=== PATIENT | male | born 2000 | race Hispanic/Latino ===

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

== ENCOUNTER 2022-08-11 04:28 | Emergency (ER) | payer OTHER ==
--- OUTSIDE RECORDS SUMMARY | 2022-08-11 04:32 | XMS REPORT | Continuity of Care Document ---
:2000 Author Organization [facility] t Address [address] [place] [address] [address] [place] [address] Care Team Providers Name Role Phone Su Hood Primary Care Physician [phone] Kimi Jeronimo RN Attending Clinician Unavailable BRYANT RIVERS Attending Clinician Unavailable Bryant Luque Attending Clinician DALILA CONTRERAS Attending Clinician Unavailable Dalila Contreras MD Attending Clinician PAM PIRES Attending Clinician Unavailable Pam Pires MD Attending Clinician DALILA CONTRERAS Admitting Clinician Unavailable BRYANT RIVERS Admitting Clinician Unavailable Payers Payer Name Policy Type Policy Number Effective Date Expiration Date S ource Problems Condition Condition Condition Status Onset Resolution Last Treating Co mments Source Name Details Category Date Date Treatment Clinician Date H. pylori H. pylori Disease Active 2012-03 Uni vers infection infection 1- ity of 00:00: [address] Allergies, Adverse Reactions, Alerts Allergy Allergy Status Severity Reaction(s) Onset Inactive Treating Comm ents Source Name Type Date Date Clinician NO KNOWN Drug Active Univers ALLERGIE Class ity of S [facility] Social History Social Habit Start Date Stop Date Quantity Comments Source Exposure to 2022-06-19 2022-06-29 Not sure University of SARS-CoV-2 00:00:00 18:32:00 [place] [facility] (event) Branch Alcohol intake 2022-06-29 2022-06-29 Current University of 00:00:00 00:00:00 non-drinker of [facility] alcohol (finding) Branch Tobacco use and 2012-12-01 2012-12-01 Smokeless tobacco Un iversity of exposure 00:00:00 00:00:00 non-user [facility] Tobacco Comment 2012-12-01 2012-12-01 father smokes Univer sity of 00:00:00 00:00:00 outside [facility] Sex Assigned At [birth year] Universit y of 00:00:00 00:00:00 [facility] Smoking Status Start Date Stop Date Source Never smoked tobacco [facility] Medications Ordered Filled Start Stop Current Ordering Indication Dosage Frequency Signature Comments Components Source Medication Medication Date Date Medication? Clinician (SIG) Name Name acetaminoph 2022- No 1000mg 1,000 mg, Univers en 06-29 Oral, ity of (TYLENOL) 23:45: 23:41 [place]CE[place] :[place] dose, [place] Medical 1,000 mg Tue06/29/22 Bran h at 1845, Routine ibuprofen 2022- No 600mg 600 mg, Uni vers (IBU) 06-29 Oral, ity of tablet 600 23:45: 23:42 ONCE, 1 [place] mg 00 :00 dose, On Medical Tue06/29/22 Branch at 1845, MECHELLE ibuprofen Yes [id number] 800mg Take 1 U nivers 800 mg 4-04 tablet by ity of tablet 00:00: mouth [place] 00 every 8 Medical (eight) Branch hours as needed for Temp > 38.5 C or Pain (scale 4-6). ondansetron Yes [id number] 4mg Take 1 Univers 4 mg 4-04 tablet by ity of disintegrat 00:00: mouth [place] ing tablet 00 every 8 Medica l (eight) Branch hours as needed for Nausea and Vomiting (N/V). ibuprofen Yes [id number] 800mg Take 1 U nivers 800 mg 4-04 tablet by ity of tablet 00:00: mouth [place] 00 every 8 Medical (eight) Branch hours as needed for Temp > 38.5 C or Pain (scale 4-6). ondansetron Yes [id number] 4mg Take 1 Univers 4 mg -04 tablet by ity of disintegrat 00:00: mouth [place] ing tablet 00 every 8 Medica l (eight) Branch hours as needed for Nausea and Vomiting (N/V). FENTanyl PF 2022- No 100ug 100 mcg, Univers (SUBLIMAZE 05-01 Slow IV ity o f (PF)) 06:00: 05:10 Push, [place] injection 00 :00 ONCE, 1 Medical 100 mcg dose, On Branch 05/01/22 at 0000, MECHELLE ketorolac 2022- No 30mg 30 mg, Unive rs (TORADOL) 05-01 Slow IV ity of injection 05:45: 05:10 Push, [place] 30 mg 00 :00 ONCE, 1 Medical dose, On Branch 04/30/22 at 2345, Routine azithromyci 2022- No 1000mg 1,000 mg, Univers n 05-01 Oral, ity of (ZITHROMAX) 05:15: 05:09 [place]CE, 1 [place] tablet 00 :[place] dose, On Medical 1,000 mg 04/30/22 Branc h at 2315, MECHELLE
Re ason for Anti-Infec tive: Documented Infection< br>Documen mikey Infection Site: Urine
D uration of Therapy: Other (see Comments) ondansetron 2022- No 4mg 4 mg, Slow Univers (ZOFRAN 05-01 IV Push, ity of (PF)) 04:30: 03:39 ONCE, 1 [place] injection 4 00 :00 dose, On Medi petrona mg 04/30/22 Branch at 2230, MECHELLE morpHINE (4 2022- No 4mg 4 mg, Slow Univers mg/mL) 05-01 IV Push, ity of injection 4 04:30: 03:39 ONCE, 1 [place] mg 00 :[place] dose, On Medical 04/30/22 Branch at 2230, STAT cefTRIAXone 2022- No 1000mg 1,000 mg, Univers (ROCEPHIN) 05-01 IV ity of 1,000 mg in 03:30: 04:53 Piggyback, [place] NaCl 0.9% 00 :00 ONCE, 1 Medical (NS) 50 mL dose, On Branc h MINI-BAG Tue04/30/22 at 2130, Administer over 30 Minutes, 50 mL
R jaswinder for Anti-Infec tive: Documented Infection< br>Documen mikey Infection Site: Pelvic<br& gt;Duratio n of Therapy: 7 days doxycycline 0 Yes [id number] 100mg Take 1 Univers hyclate 100 04-30 capsule by it y of mg capsule 00:00: mouth 2 [place] 00 (two) Medical times Branch daily. doxycycline 2022- No [id number] 100mg Take 1 Univers hyclate 100 04-30- capsule by i ty of mg capsule 00:00: 00:00 mouth 2 [place] 00 :00 (two) Medical times Branch daily. acetaminoph 2022- No [id number] 1{tbl} Take 1 U nivers en-codeine 04-30 tablet by ity of 300-30 mg 00:00: 05:59 mouth [place] tablet 00 :00 every 4 Medical (four) Branch hours as needed for Pain (scale 1-3) for up to 7 days. Indication s: acute pain ibuprofen 0 Yes [id number] 600mg Take 1 Univers 600 mg 2-01 tablet by ity of tablet 00:00: mouth [place] 00 every 6 Medical (six) Branch hours as needed for Pain (scale 4-6). ibuprofen 0 Yes [id number] 600mg Take 1 Univers 600 mg 2-01 tablet by ity of tablet 00:00: mouth [place] 00 every 6 Medical (six) Branch hours as needed for Pain (scale 4-6). ibuprofen 0 2022- No [id number] 600mg Take 1 Univers 600 mg 2-03 31-04 tablet by ity of tablet 00:00: 00:00 mouth [place] 00 :00 every 6 Medical (six) Branch hours as needed for Pain (scale 4-6). &lt 2021-0 No 8-11 00:00: 00 TAKE ONE 2021-0 No 600 TABLET FOUR 8-11 TIMES DAILY 00:00: 00 &lt 2022-0 No 800 8-11 00:00: 00 TAKE 1 2021-0 No 800 TABLET BY 8-11 MOUTH THREE 00:00: TIMES DAILY 00 Dose 2021-0 No Unknown 2-28 00:00: 00 Dose 2020- No Unknown 2-08 00:00: 00 ibuprofen 2020-1 No 1mg 800 mg 0-12 tablet 00:00: 00 amoxicillin 2020-0 No 1mg 875 mg 6-03 tablet 00:00: 00 pyrantel 0 No 15mg/mL pamoate 50 4-28 mg/mL oral 00:00: suspension 00 Miralax 17 0 No 1gram gram oral 4-28 powder 00:00: packet 00 amoxicillin No 1mg 500 mg 9-21 capsule 00:00: 00 amoxicillin No 1mg 500 mg 8-22 capsule 00:00: 00 permethrin No 1% 5 % topical 5-26 cream 00:00: 00 griseofulvi No 15mg/5 n microsize 5-24 mL 125 mg/5 mL 00:00: oral 00 suspension sulfamethox No 15mg/5 azole 200 5-24 mL mg-trimetho 00:00: prim 40 00 mg/5 mL oral suspension Adderall XR No 1mg 20 mg 5-02 capsule,ext 00:00: ended 00 release amphetamine Yes 10mg Take 1 Cap Univers -dextroamph 2-28 by mouth ity of etamine XR 00:00: every [place] (ADDERALL 00 morning. Medica l XR) 10 mg Branch 24 hr capsule amphetamine Yes 10mg Take 1 Cap Univers -dextroamph 2-28 by mouth ity of etamine XR 00:00: every [place] (ADDERALL 00 morning. Medica l XR) 10 mg Branch 24 hr capsule amphetamine 2022- No 10mg Take 1 Cap Univers -dextroamph 2-28 04-04 by mouth ity of etamine XR 00:00: 00:00 every [place] (ADDERALL 00 :00 morning. Medica l XR) 10 mg Branch 24 hr capsule Cholecalcif 2012-03 Yes [id number] 1/2 tab po Univers ovidio, 0-30 q day x 6 ity of Vitamin D3, 00:00: Marleni mcmillan s (VITAMIN 00 then 1 tab Medic al D3) 2,000 po q day x Bran ch unit Tab 6 weeks Cholecalcif 2012-03 Yes [id number] 1/2 tab po Univers ovidio, 0-30 q day x 6 ity of Vitamin D3, 00:00: Marleni mcmillan s (VITAMIN 00 then 1 tab Medic al D3) 2,000 po q day x Bran ch unit Tab 6 weeks Cholecalcif 2012-03- No [id number] 1/2 tab po Univers ovidio, 0-30 04-04 q day x 6 ity of Vitamin D3, 00:00: 00:00 Quan mcmillan as (VITAMIN 00 :00 then 1 tab Medic al D3) 2,000 po q day x Bran ch unit Tab 6 weeks amoxicillin 2012-03 Yes [id number] One po bid Univers (AMOXIL) 0-29 x 14 days ity of 875 mg 00:00: [place] tablet 00 Medical Branch lansoprazol 2012-03 Yes [id number] One po bid Univers e 0-29 x 14 days ity of (PREVACID) 00:00: [place] 30 mg 00 Medical capsule Branch clarithromy 2012-03 Yes [id number] 1.5 tablet Univers nic 0-29 (375 mg) ity of (BIAXIN) 00:00: po bid x [place] 250 mg 00 14 days Medical tablet Branch amoxicillin 2012-03 Yes [id number] One po bid Univers (AMOXIL) 0-29 x 14 days ity of 875 mg 00:00: [place] tablet 00 Medical Branch lansoprazol 2012-03 Yes [id number] One po bid Univers e 0-29 x 14 days ity of (PREVACID) 00:00: [place] 30 mg 00 Medical capsule Branch clarithromy 2012-03 Yes [id number] 1.5 tablet Univers nic 0-29 (375 mg) ity of (BIAXIN) 00:00: po bid x [place] 250 mg 00 14 days Medical tablet Branch amoxicillin 2012-03- No [id number] One po bid Univers (AMOXIL) 0-29 04-04 x 14 days ity o f 875 mg 00:00: 00:00 [place] tablet 00 :00 Medical Branch lansoprazol 2012-03- No [id number] One po bid Univers e 0-29 04-04 x 14 days ity of (PREVACID) 00:00: 00:00 [place] 30 mg 00 :00 Medical [facility] Branch clarithromy 2012-033- No [id number] 1.5 tablet Univers nic 06-29 (375 mg) ity of (BIAXIN) 00:00: 00:00 po bid x [place] 250 mg 00 :00 14 days Medical tablet Branch Melatonin 3 2012-03 Yes [id number] Take by Univers mg Lozg 0-25 mouth. ity of 00:00: [place] 00 Medical Branch Melatonin 3 2012-03 Yes [id number] Take by Univers mg Lozg 0-25 mouth. ity of 00:00: [place] 00 Medical Branch Melatonin 3 2012-033- No [id number] Take by Univers mg Lozg 0-25 04-04 mouth. ity of 00:00: 00:00 [place] 00 :00 [facility] Immunizations Ordered Filled Immunization Date Status Comments [facility] e Immunization Name Name SARS-COV-2 COVID-19 2020-11-25 Completed Unive rsity of PFIZER VACCINE 00:00:00 [facility] SARS-COV-2 COVID-19 2020-11-25 Completed Unive rsity of PFIZER VACCINE 00:00:00 [facility] SARS-COV-2 COVID-19 2020-11-25 Completed Unive rsity of PFIZER VACCINE 00:00:00 [facility] SARS-COV-2 COVID-19 2020-11-25 Completed Unive rsity of PFIZER VACCINE 00:00:00 [facility] Influenza Virus 2013-02-09 Completed Universit y of Vaccine (3+ yrs) 00:00:00 [facility] Influenza Virus 2013-02-09 Completed Universit y of Vaccine (3+ yrs) 00:00:00 [facility] Influenza Virus 2013-02-09 Completed Universit y of Vaccine (3+ yrs) 00:00:00 [facility] Influenza Virus 2013-02-09 Completed Universit y of Vaccine (3+ yrs) 00:00:00 [facility] Influenza Virus 2012-03-03 Completed Universit y of Vaccine 00:00:00 [facility] Influenza Virus 2012-03-03 Completed Universit y of Vaccine 00:00:00 [facility] Influenza Virus 2012-03-03 Completed Universit y of Vaccine 00:00:00 [facility] Influenza Virus 2012-03-03 Completed Universit y of Vaccine 00:00:00 [facility] Influenza Virus 2011-04-16 Completed Universit y of Vaccine 00:00:00 [facility] Influenza Virus 2011-04-16 Completed Universit y of Vaccine 00:00:00 [facility] Influenza Virus 2011-04-16 Completed Universit y of Vaccine 00:00:00 [facility] Influenza Virus 2011-04-16 Completed Universit y of Vaccine 00:00:00 [facility] Influenza Virus 2010-02-24 Completed Universit y of Vaccine 00:00:00 [facility] Influenza Virus 2010-02-24 Completed Universit y of Vaccine 00:00:00 [facility] Influenza Virus 2010-02-24 Completed Universit y of Vaccine 00:00:00 [facility] Influenza Virus 2010-02-24 Completed Universit y of Vaccine 00:00:00 [facility] Influenza Virus 2010-01-13 Completed Universit y of Vaccine 00:00:00 [facility] Influenza Virus 2010-01-13 Completed Universit y of Vaccine 00:00:00 [facility] Influenza Virus 2010-01-13 Completed Universit y of Vaccine 00:00:00 [facility] Influenza Virus 2010-01-13 Completed Universit y of Vaccine 00:00:00 [facility] Varicella 2009-07-15 Completed University of (varivax)(chicken 00:00:00 [place] M edical pox) Branch Varicella 2009-07-15 Completed University of (varivax)(chicken 00:00:00 [place] M [facility]ical pox) Branch Varicella 2009-07-15 Completed University of (varivax)(chicken 00:00:00 [place] M edical pox) Branch Varicella 2009-07-15 Completed University of (varivax)(chicken 00:00:00 [place] M edical pox) Branch Pneumococcal 7 2007-01-19 Completed University of Conjugate, PCV7 00:00:00 [place] Med ical (Prevnar7) Branch Pneumococcal 7 2007-01-19 Completed University of Conjugate, PCV7 00:00:00 [place] [facility] ical (Prevnar7) Branch Pneumococcal 7 2007-01-19 Completed University of Conjugate, PCV7 00:00:00 [place] [facility] ical (Prevnar7) Branch Pneumococcal 7 2007-01-19 Completed University of Conjugate, PCV7 00:00:00 [place] [facility] ical (Prevnar7) Branch HEPATITIS A 2007-01-12 Completed University of 00:00:00 [facility] HEPATITIS A 2007-01-12 Completed University of 00:00:00 [facility] HEPATITIS A 2007-01-12 Completed University of 00:00:00 [facility] HEPATITIS A 2007-01-12 Completed University of 00:00:00 [facility] DTAP 2006-12-20 Completed University of 00:00:00 [facility] Polio (IPV/OPV) 2006-12-20 Completed Universit y of 00:00:00 [facility] DTAP 2006-12-20 Completed University of 00:00:00 [facility] Polio (IPV/OPV) 2006-12-20 Completed Universit y of 00:00:00 [facility] DTAP 2006-12-20 Completed University of 00:00:00 [facility] Polio (IPV/OPV) 2006-12-20 Completed Universit y of 00:00:00 [facility] DTAP 2006-12-20 Completed University of 00:00:00 [facility] Polio (IPV/OPV) 2006-12-20 Completed Universit y of 00:00:00 [facility] HIB 4 Dose Schedule 2006-05-19 Completed Unive rsity of 00:00:00 [facility] HIB 4 Dose Schedule 2006-05-19 Completed Unive rsity of 00:00:00 [facility] HIB 4 Dose Schedule 2006-05-19 Completed Unive rsity of 00:00:00 [facility] HIB 4 Dose Schedule 2006-05-19 Completed Unive rsity of 00:00:00 [facility] Pneumococcal 7 2006-01-12 Completed University of Conjugate, PCV7 00:00:00 [place] [facility] ical (Prevnar7) Branch Pneumococcal 7 2006-01-12 Completed University of Conjugate, PCV7 00:00:00 [place] [facility] ical (Prevnar7) Branch Pneumococcal 7 2006-01-12 Completed University of Conjugate, PCV7 00:00:00 [place] [facility] ical (Prevnar7) Branch Pneumococcal 7 2006-01-12 Completed University of Conjugate, PCV7 00:00:00 [place] [facility] ical (Prevnar7) Branch Pneumococcal 7 2005-12-13 Completed University of Conjugate, PCV7 00:00:00 [place] Med ical (Prevnar7) Branch Pneumococcal 7 2005-12-13 Completed University of Conjugate, PCV7 00:00:00 [place] [facility] ical (Prevnar7) Branch Pneumococcal 7 2005-12-13 Completed University of Conjugate, PCV7 00:00:00 [place] [facility] ical (Prevnar7) Branch Pneumococcal 7 2005-12-13 Completed University of Conjugate, PCV7 00:00:00 [facility] ical (Prevnar7) Branch HEPATITIS A 2005-06-16 Completed University of 00:00:00 [facility] MMR 2005-06-16 Completed University of 00:00:00 [facility] Varicella 2005-06-16 Completed University of (varivax)(chicken 00:00:00 [facility] [place] ed[place] pox) Branch HEPATITIS A 2005-06-16 Completed University of 00:00:00 [facility] MMR 2005-06-16 Completed University of 00:00:00 [facility] Varicella 2005-06-16 Completed University of (varivax)(chicken 00:00:00 [place] [facility] [place]ical pox) Branch HEPATITIS A 2005-06-16 Completed University of 00:00:00 [facility] MMR 2005-06-16 Completed University of 00:00:00 [facility] Varicella 2005-06-16 Completed University of (varivax)(chicken 00:00:00 [facility] [place] ed[facility] pox) Branch HEPATITIS A 2005-06-16 Completed University of 00:00:00 [facility] MMR 2005-06-16 Completed University of 00:00:00 [facility] Varicella 2005-06-16 Completed University of (varivax)(chicken 00:00:00 [place] M edical pox) Branch DTAP 2005-01-13 Completed University of 00:00:00 [facility] DTAP 2005-01-13 Completed University of 00:00:00 [facility] DTAP 2005-01-13 Completed University of 00:00:00 [facility] DTAP 2005-01-13 Completed University of 00:00:00 [facility] MMR 2003-12-12 Completed University of 00:00:00 [facility] MMR 2003-12-12 Completed University of 00:00:00 [facility] MMR 2003-12-12 Completed University of 00:00:00 [facility] MMR 2003-12-12 Completed University of 00:00:00 [facility] DTAP 2003-07-26 Completed University of 00:00:00 [facility] Polio (IPV/OPV) 2003-07-26 Completed Universit y of 00:00:00 [facility] DTAP 2003-07-26 Completed University of 00:00:00 [facility] Polio (IPV/OPV) 2003-07-26 Completed Universit y of 00:00:00 [facility] DTAP 2003-07-26 Completed University of 00:00:00 [facility] Polio (IPV/OPV) 2003-07-26 Completed Universit y of 00:00:00 [facility] DTAP 2003-07-26 Completed University of 00:00:00 [facility] Polio (IPV/OPV) 2003-07-26 Completed Universit y of 00:00:00 [facility] DTAP 2003-05-18 Completed University of 00:00:00 [facility] HIB 4 Dose Schedule 2003-05-18 Completed Unive rsity of 00:00:00 [facility] Hep B, Adol or Pedi 2003-05-18 Completed Unive rsity of Dosage 00:00:00 [facility] Polio (IPV/OPV) 2003-05-18 Completed Universit y of 00:00:00 [facility] DTAP 2003-05-18 Completed University of 00:00:00 [facility] HIB 4 Dose Schedule 2003-05-18 Completed Unive rsity of 00:00:00 [facility] Hep B, Adol or Pedi 2003-05-18 Completed Unive rsity of Dosage 00:00:00 [facility] Polio (IPV/OPV) 2003-05-18 Completed Universit y of 00:00:00 [facility] DTAP 2003-05-18 Completed University of 00:00:00 [facility] HIB 4 Dose Schedule 2003-05-18 Completed Unive rsity of 00:00:00 [facility] Branch Hep B, Adol or Pedi 2003-05-18 Completed Unive rsity of Dosage 00:00:00 [facility] Polio (IPV/OPV) 2003-05-18 Completed Universit y of 00:00:00 [facility] DTAP 2003-05-18 Completed University of 00:00:00 [facility] HIB 4 Dose Schedule 2003-05-18 Completed Unive rsity of 00:00:00 [facility] Branch Hep B, Adol or Pedi 2003-05-18 Completed Unive rsity of Dosage 00:00:00 [facility] Polio (IPV/OPV) 2003-05-18 Completed Universit y of 00:00:00 [facility] HIB 4 Dose Schedule 2003-01-24 Completed Unive rsity of 00:00:00 [facility] Hep B, Adol or Pedi 2003-01-24 Completed Unive rsity of Dosage 00:00:00 [facility] Pneumococcal 7 2003-01-24 Completed University of Conjugate, PCV7 00:00:00 [place] [facility] ical (Prevnar7) Branch Polio (IPV/OPV) 2003-01-24 Completed Universit y of 00:00:00 [facility] DTAP 2003-01-24 Completed University of 00:00:00 [facility] HIB 4 Dose Schedule 2003-01-24 Completed Unive rsity of 00:00:00 [facility] Hep B, Adol or Pedi 2003-01-24 Completed Unive rsity of Dosage 00:00:00 [facility] Pneumococcal 7 2003-01-24 Completed University of Conjugate, PCV7 00:00:00 [place] Med ical (Prevnar7) [place] Polio (IPV/OPV) 2003-01-24 Completed Universit y of 00:00:00 [facility] DTAP 2003-01-24 Completed University of 00:00:00 [facility] HIB 4 Dose Schedule 2003-01-24 Completed Unive rsity of 00:00:00 [facility] Hep B, Adol or Pedi 2003-01-24 Completed Unive rsity of Dosage 00:00:00 [facility] Pneumococcal 7 2003-01-24 Completed University of Conjugate, PCV7 00:00:00 [place] [facility] ical (Prevnar7) Branch Polio (IPV/OPV) 2003-01-24 Completed Universit y of 00:00:00 [facility] DTAP 2003-01-24 Completed University of 00:00:00 [facility] HIB 4 Dose Schedule 2003-01-24 Completed Unive rsity of 00:00:00 [facility] Hep B, Adol or Pedi 2003-01-24 Completed Unive rsity of Dosage 00:00:00 [facility] Pneumococcal 7 2003-01-24 Completed University of Conjugate, PCV7 00:00:00 [place] [facility] ical (Prevnar7) Branch Polio (IPV/OPV) 2003-01-24 Completed Universit y of 00:00:00 [facility] Branch DTAP 2003-01-24 Completed University of 00:00:00 [place] [facility] Hep B, Adol or Pedi 2002 Completed Unive rsity of Dosage 00:00:00 [place] [facility] Hep B, Adol or Pedi 2002 Completed Unive rsity of Dosage 00:00:00 [place] [facility] Hep B, Adol or Pedi 2002 Completed Unive rsity of Dosage 00:00:00 [place] [facility] Hep B, Adol or Pedi 2002 Completed Unive rsity of Dosage 00:00:00 [facility] Vital Signs Vital Name Observation Time Observation Value Comments Source Systolic blood 2022-06-30 00:53:04 117 mm[Hg] Univer sity of pressure [facility] Diastolic blood 2022-06-30 00:53:04 66 mm[Hg] Unive rsity of pressure [facility] Heart rate 2022-06-30 00:53:04 88 /min [facility] Body temperature 2022-06-30 00:53:04 36.89 [facility] Respiratory rate 2022-06-30 00:53:04 16 [facility] in 2022-06-30 00:53:04 97 /min [place] [facility] Arterial blood by [facility] Pulse oximetry [place] Body height 2022-06-29 23:34:00 162.6 cm [facility] Body weight 2022-06-29 23:34:00 63.504 kg [facility] BMI 2022-06-29 23:34:00 24.03 kg/m2 [facility] Systolic blood 2022-05-01 05:10:00 144 mm[Hg] Univer sity of pressure [facility] Diastolic blood 2022-05-01 05:10:00 92 mm[Hg] Unive rsity of pressure [facility] Heart rate 2022-05-01 05:10:00 86 /min [facility] Respiratory rate 2022-05-01 05:10:00 16 /[facility] O[facility] in 2022-05-01 05:10:00 100 /min University of Arterial blood by [place] Medi [place] Pulse oximetry Branch Body temperature 2022-05-01 03:18:00 36.72 [place]le Univ ersity of [facility] Body height 2022-05-01 03:18:00 162.6 cm Universi ty of [facility] Body weight 2022-05-01 03:18:00 65.772 kg Universi ty of [place] [facility] [facility] BMI 2022-05-01 03:18:00 24.89 kg/m2 [facility] Systolic blood 2022-04-29 03:00:00 126 mm[Hg] Univer sity of pressure [facility] Diastolic blood 2022-04-29 03:00:00 79 mm[Hg] Unive rsity of pressure [facility] Heart rate 2022-04-29 03:00:00 88 /min [facility] Body temperature 2022-04-29 03:00:00 36.78 [facility] Respiratory rate 2022-04-29 03:00:00 18 /min [facility] Oxygen saturation in 2022-04-29 03:00:00 100 /min [facility] Arterial blood by [facility] Pulse oximetry Branch Body height 2022-04-29 00:57:00 162.6 cm [facility] Body weight 2022-04-29 00:57:00 65.772 kg [facility] BMI 2022-04-29 00:57:00 24.89 kg/m2 [facility] BP Systolic 2021-11-05 15:35:00 127 mm[Hg] BP Diastolic 2021-11-05 15:35:00 85 mm[Hg] Weight Measured 2021-11-05 15:35:00 142.20 pounds Height Measured 2021-11-05 15:35:00 64.00 inches Body Temperature 2021-11-05 15:35:00 98.10 degrees Heart Rate 2021-11-05 15:35:00 102.00 /min Respiratory Rate 2021-11-05 15:35:00 24.00 /min BP Systolic 2021-03-04 08:25:00 113 mm[Hg] BP Diastolic 2021-03-04 08:25:00 72 mm[Hg] Weight Measured 2021-03-04 08:25:00 140.40 pounds Height Measured 2021-03-04 08:25:00 64.00 inches Body Temperature 2021-03-04 08:25:00 97.40 degrees Heart Rate 2021-03-04 08:25:00 70.00 /min Respiratory Rate 2021-03-04 08:25:00 BP Systolic 2021-01-19 08:53:00 106 mm[Hg] BP Diastolic 2021-01-19 08:53:00 58 mm[Hg] Weight Measured 2021-01-19 08:53:00 142.80 pounds Height Measured 2021-01-19 08:53:00 64.00 inches Body Temperature 2021-01-19 08:53:00 97.90 degrees Heart Rate 2021-01-19 08:53:00 75.00 /min Respiratory Rate 2021-01-19 08:53:00 BP Systolic 2021-01-06 08:25:00 109 mm[Hg] BP Diastolic 2021-01-06 08:25:00 72 mm[Hg] Weight Measured 2021-01-06 08:25:00 144.00 pounds Height Measured 2021-01-06 08:25:00 64.00 inches Body Temperature 2021-01-06 08:25:00 98.10 degrees Heart Rate 2021-01-06 08:25:00 64.00 /min Respiratory Rate 2021-01-06 08:25:00 BP Systolic 2020-07-23 11:32:00 115 mm[Hg] BP Diastolic 2020-07-23 11:32:00 73 mm[Hg] Weight Measured 2020-07-23 11:32:00 142.20 pounds Height Measured 2020-07-23 11:32:00 63.00 inches Body Temperature 2020-07-23 11:32:00 98.20 degrees Heart Rate 2020-07-23 11:32:00 66.00 /min Respiratory Rate 2020-07-23 11:32:00 16.00 /min BP Systolic 2015-12-17 15:40:00 107 mm[Hg] BP Diastolic 2015-12-17 15:40:00 71 mm[Hg] Weight Measured 2015-12-17 15:40:00 100.60 pounds Height Measured 2015-12-17 15:40:00 56.00 inches Body Temperature 2015-12-17 15:40:00 98.20 degrees Heart Rate 2015-12-17 15:40:00 89.00 /min Respiratory Rate 2015-12-17 15:40:00 18.00 /min BP Systolic 2015-11-17 10:02:00 109 mm[Hg] BP Diastolic 2015-11-17 10:02:00 73 mm[Hg] Weight Measured 2015-11-17 10:02:00 101.00 pounds Height Measured 2015-11-17 10:02:00 56.00 inches Body Temperature 2015-11-17 10:02:00 98.70 degrees Heart Rate 2015-11-17 10:02:00 108.00 /min Respiratory Rate 2015-11-17 10:02:00 18.00 /min Height Measured 2015-09-09 13:33:00 54.53 inches Body Temperature 2015-09-09 13:33:00 98.10 degrees Heart Rate 2015-09-09 13:33:00 91.00 /min Respiratory Rate 2015-09-09 13:33:00 BP Systolic 2015-09-09 13:33:00 103 mm[Hg] BP Diastolic 2015-09-09 13:33:00 69 mm[Hg] Weight Measured 2015-09-09 13:33:00 85.40 pounds BP Systolic 2015-08-22 16:16:00 121 mm[Hg] BP Diastolic 2015-08-22 16:16:00 75 mm[Hg] Weight Measured 2015-08-22 16:16:00 83.80 pounds Height Measured 2015-08-22 16:16:00 55.51 inches Body Temperature 2015-08-22 16:16:00 98.00 degrees Heart Rate 2015-08-22 16:16:00 120.00 /min Respiratory Rate 2015-08-22 16:16:00 16.00 /min BP Systolic 2015-08-21 08:46:00 103 mm[Hg] BP Diastolic 2015-08-21 08:46:00 71 mm[Hg] Weight Measured 2015-08-21 08:46:00 83.20 pounds Height Measured 2015-08-21 08:46:00 56.00 inches Body Temperature 2015-08-21 08:46:00 98.10 degrees Heart Rate 2015-08-21 08:46:00 102.00 /min Respiratory Rate 2015-08-21 08:46:00 16.00 /min Procedures Procedure Date / Time Performed Performing Clinician [facility] e RAPID STREP SCREEN FOR 2022-06-29 23:44:00 Bryant Rivers [facility] GROUP A Medical Branch RAPID INFLUENZA A/B 2022-06-29 23:44:[address] [facility] CONSENT/REFUSAL FOR 2022-06-29 23:28:51 Doctor Unassigned, No [facility] [place] [facility] Name Medical Branch TREATMENT US SCROTUM AND 2022-05-01 04:54:42 Dalila Contreras [facility] CONSENT/REFUSAL FOR 2022-05-01 03:15:19 [facility], [facility] TREATMENT US TESTICULAR TORSION 2022-04-29 02:22:24 Bryant Rivers [facility] URINALYSIS 2022-04-29 01:10:00 Bryant Rivers [facility] NOTICE OF PRIVACY 2022-04-29 00:45:07 Doctor Unassigned, No [facility] PRACTICES [facility] CONSENT/REFUSAL FOR 2022-04-29 00:43:35 Doctor Unassigned, No [facility] [place] DIAGNOSIS AND Name Medical Branch TREATMENT Plan of Care Planned Activity Planned Date Details Comments Source Goal Plan of Care Note [code = 58095-8] Goal Plan of Care Note [code = 82824-5] Goal Plan of Care Note [code = 54107-8] Goal Plan of Care Note [code = 47738-1] Goal Plan of Care Note [code = 81693-7] Goal Plan of Care Note [code = 91475-1] Goal Plan of Care Note [code = 36608-2] Goal Plan of Care Note [code = 82874-4] Goal Plan of Care Note [code = 31359-9] Goal Plan of Care Note [code = 42615-7] Goal Plan of Care Note [code = 26470-3] Goal Plan of Care Note [code = 55326-4] Goal Plan of Care Note [code = 83290-5] Goal Plan of Care Note [code = 02659-9] Goal Plan of Care Note [code = 50010-5] Goal Plan of Care Note [code = 18344-5] Goal Plan of Care Note [code = 77772-4] Goal Plan of Care Note [code = 37049-1] Goal Plan of Care Note [code = 13373-5] Encounters Start End Encounter Admission Attending Care Care Encounter Source Date/Time Date/Time Type Type Clinicians Facility Department ID 2022-06-30 2022-06-30 SUSHILA Keita [id number] Univers 00:00:00 00:00:00 (Out) Kimi ROSALINA [id number] [facility] [id number] [facility] [id number] [address] 2022-06-29 2022-06-29 Emergency [facility] [id number] Univers 18:38:00 19:58:00 BRYANT garcia [facility] 2022-06-29 2022-06-29 Emergency [facility] [id number] Univers 18:38:00 19:58:00 Bryant JUNG [id number] mena martínez [facility] [id number] [facility] [id number] [address] 2022-04-30 2022-04-30 Emergency [facility]RT [id number] Univers 21:29:00 23:36:00 DALILA [facility] 2022-04-30 2022-04-30 Emergency [facility] [id number] Univers 21:29:00 23:36:00 Dalila [facility]UNG [id number] [facility] [id number] [facility] [id number] [address] 2022-04-28 2022-04-28 Emergency X PRANAY [facility] ERT [id number] Univers 18:59:00 21:12:00 PAM garcia [facility] 2022-04-28 2022-04-28 Emergency Bryant Rivers [facility] [id number] [facility] 18:59:00 21:12:00 Pam Pires [facility] [id number] [facility] [id number] [facility] [id number] [facility] 084 Branch 2021-11-05 2021-11-05 Outpatient [id number] 00:00:00 00:00:00 Visit [id number] Results Test Description Test Time Test Comments Results Result Comments Source DRUG SCREEN, SERUM, NO CONFIRMATION 2021-11-12 15:53:53 Test Item Value Reference Range Interpretation Comme nts AMPHETAMINES (test code = 27677) TNP Specimen received in an unspun tube not compliant with tube manufactur er requirements. R esults cannot be reported. BARBITURATES (test code = 52268) TEST NOT PERFORMED BENZODIAZEPINES (test code = TEST NOT PERFORMED 72139) COCAINE METABOLITE (test code = TEST NOT PERFORMED 84946) METHADONE (test code = 19957) TEST NOT PERFORMED OPIATES (test code = 924249) TEST NOT PERFORMED PHENCYCLIDINE (test code = TEST NOT PERFORMED 015196) PROPOXYPHENE (test code = TEST NOT PERFORMED 259891) THC (CANNABIS) (test code = TEST NOT PERFORMED 661470) ETHANOL (test code = 545148) TEST NOT PERFORMED UNLABELLED [id number] 06:04:24 Test Item Value Reference Range Interpretation Comments NOTE: (test code = SPECIMEN RECEIVED WITHOUT 50661) PATIENT'S NAME. UNLESS OTHERWISE INDIC ATED, ALL TESTING PERFORM ED ATCLINICAL PATHOLOGY LABOR [employer] [address] [place] [address] LABORATOR Y DIRECTOR: KELSIE COX M.D. CLIA NUMBER [id number] CAP ACCREDITATION N O. [id number] SARS-COV-2 (COVID19), NAAT [ADDED]2020-04-11 00:00:00 Test Item Value Reference Range Interpretation Comments SARS-CoV-2 INTERPRETATION (test NEGATIVE code = 47490) SOURCE (test code = 58485) NOT SPECIFIED SARS-COV-2 (COVID19), NAAT [ADDED]2020-04-11 00:00:00 Test Item Value Reference Range Interpretation Comments SARS-CoV-2 INTERPRETATION (test NEGATIVE code = 25638) SOURCE (test code = 35894) NOT SPECIFIED CULTURE, [id number] 00:00:00 Test Item Value Reference Range Interpretation Comments CULTURE, THROAT (test SPECIMEN NUMBER: code = 45462) [id number] CULTURE, [id number] 00:00:00 Test Item Value Reference Range Interpretation Comments CULTURE, THROAT (test SPECIMEN NUMBER: code = 43321) [id number] LIVER (HEPATIC) FUNCTION [id number] 00:00:00 Test Item Value Reference Range Interpretation Comments PROTEIN, TOTAL (test code = 2229) 8.1 G/DL ALBUMIN (test code = 2201) 4.5 G/DL BILIRUBIN, TOTAL (test code = 2207) 0.4 MG/DL BILIRUBIN, DIRECT (test code = 0.1 MG/DL 2021) ALKALINE PHOSPHATASE (test code = 239 U/L 2203) SGOT (AST) (test code = 2218) 22 U/L SGPT (ALT) (test code = 2219) 9 U/L LIVER (HEPATIC) FUNCTION [id number] 00:00:00 Test Item Value Reference Range Interpretation Comments PROTEIN, TOTAL (test code = 2229) 8.1 G/DL ALBUMIN (test code = 2201) 4.5 G/DL BILIRUBIN, TOTAL (test code = 2207) 0.4 MG/DL BILIRUBIN, DIRECT (test code = 0.1 MG/DL 2021) ALKALINE PHOSPHATASE (test code = 239 U/L 2203) SGOT (AST) (test code = 2218) 22 U/L SGPT (ALT) (test code = 2219) 9 U/L
[2022-08-11] MEDS ORDERED: MAGNES/ALUMIN/SIMET 30ML UCUP ONE (05:10)
[2022-08-11] MEDS ORDERED: DIAZEPAM 5 MG TABLET ONE (05:11)
[2022-08-11 05:30] LABS: Absolute Lymphocytes (CBC) 3.4 K/uL (0.7-4.9); Hematocrit 44.5 % (39.6-49.0); Lymphocytes % 33.5 % (15.3-44.8); MCV 87.2 fL (80-100); MPV 7.7 fL (7.6-11.3); RBC Red Blood Cell Count 5.09 M/uL (4.33-5.43)
[2022-08-11 05:43] LABS: Albumin 4.1 g/dL (3.4-5.0); Bilirubin Direct 0.2 mg/dL (0-0.2); Bilirubin Indirect, Calculated 0.4 mg/dL (0.2-0.8); Bilirubin Total 0.6 mg/dL (0.2-1.0); Potassium 3.4 mEq/L (3.5-5.1); Protein, Total 7.8 g/dL (6.4-8.2); Troponin High Sensitivity 5.5 pg/mL (<58.9)
--- NOTE | 2022-08-11 05:52 | ER ---
Nurse's Notes [facility] Name: Eligio Hall Jr Age: 21 yrs Sex: Male : 2000 Arrival Date: 08/11/2022 Time: 04:28 Bed 5 Private MD: Diagnosis: Anxiety disorder, unspecified;Gastroesophageal reflux. ;Noncardiac chest pain Presentation: 08/11 04:43 Chief complaint: Patient states: mid to bilateral, sharp, stabbing, burning chest pf1 pain,onset 2300 tonight while at work with elevated HR in 140's. Patient stated was walking around at work when onset of chest pain started. Coronavirus screen: Vaccine status: Patient reports receiving the 1st dose of the Covid vaccine. Client denies travel out of the [place] in the last 14 days. At this time, the client does not indicate any symptoms associated with coronavirus-19. Ebola Screen: Patient negative for fever greater than or equal to 101.5 degrees Fahrenheit, and additional compatible Ebola Virus Disease symptoms. Initial Sepsis Screen: Does the patient meet any 2 criteria? No. Patient's initial sepsis screen is negative. Does the patient have a suspected source of infection? No. Patient's initial sepsis screen is negative. Risk Assessment: Do you want to hurt yourself or someone else? Patient reports no desire to harm self or others. Onset of symptoms was August 10, 2022 at 23:00. 04:43 Method Of Arrival: Ambulatory pf1 04:43 Acuity: DENA 3 pf1 Historical: - Allergies: 05:02 No Known Allergies; pf1 - PMHx: 05:02 tachycardia; acid reflux; pf1 - PSHx: 04:43 Appendectomy; sp4 - Immunization history:: Adult Immunizations up to date, Client reports receiving the 1st dose of the Covid vaccine, Last tetanus immunization: < 5 years ago Flu vaccine is up to date. - Social history:: Patient/guardian denies using alcohol, street drugs, IV drugs, caffeine, over the counter diet medications, tobacco products, Smoking status: Reported history of juuling and/or vaping. Patient uses alcohol, occasionally. Patient/guardian denies using street drugs. - Family history:: not pertinent. Screenin:50 [facility] ED Fall Risk Assessment (Adult) History of falling in the last 3 months, ll3 including since admission No falls in past 3 months (0 pts) Confusion or Disorientation No (0 pts) Intoxicated or Sedated No (0 pts) Impaired Gait No (0 pts) Mobility Assist Device Used No (0 pt) Altered Elimination No (0 pt) Score/Fall Risk Level 0 - 2 = Low Risk Oriented to surroundings, Maintained a safe environment, Educated pt \T\ family on fall prevention, incl call for assistance when getting out of bed. Abuse screen: Denies threats or abuse. Denies injuries from another. Nutritional screening: No deficits noted. Tuberculosis screening: No symptoms or risk factors identified. Assessment: 04:40 General: Appears uncomfortable, Behavior is calm, cooperative. Pain: Complains of pain ll3 in chest Pain does not radiate. Pain currently is 10 out of 10 on a pain scale. Quality of pain is described as sharp, stabbing, Pain began 2300 Is intermittent, Alleviated by T[place], states eats a whole bottle of tums every week, states ran out of tums today Aggravated by Taking a deep breath. Cardiovascular: Reports chest pain, shortness of breath, Patient's skin is warm and dry. Rhythm is sinus rhythm. Respiratory: Respiratory effort is even, unlabored, Respiratory pattern is regular, symmetrical. Derm: Skin is pink, warm \T\ dry. 05:30 Reassessment: Patient appears in no apparent distress at this time. Patient and/or pf1 family updated on plan of care and expected duration. Pain level reassessed. Patient is alert, oriented x 3, equal unlabored respirations, skin warm/dry/pink. Patient states feeling better. Patient states symptoms have improved. Vital Signs: 04:43 BP 140 / 92; Pulse 76; Resp 18; Pulse Ox 100% on R/A; Weight 65.77 kg; Height 5 ft. 3 pf1 in. ; Pain 10/10; 05:47 BP 134 / 81; Pulse 86; Resp 18; Pulse Ox 99% on R/A; ll3 04:43 Body Mass Index 25.69 (65.77 kg, 160.02 cm) pf1 04:43 Pain Scale: Adult pf1 ED Course: 04:29 Patient arrived in ED. jj6 04:35 Bart Walker MD is Attending Physician. sp4 04:40 Patient has correct armband on for positive identification. Bed in low position. Call ll3 light in reach. Side rails up X 1. Adult w/ patient. Client placed on continuous cardiac and pulse oximetry monitoring. NIBP monitoring applied. 04:40 Arm band placed on Patient placed in an exam room, on a stretcher, on hospital monitor, ll3 on pulse oximetry. 04:48 XRAY Chest (1 view) In Process Unspecified. EDMS 04:57 Initial lab(s) drawn, by me, sent to lab. Inserted saline lock: 20 gauge in right ll3 antecubital area, using aseptic technique. Blood collected. 05:02 Triage completed. pf1 05:04 Urine Drug Screen Sent. pf1 05:50 Aris Watson MD is Referral Physician. sp4 05:50 Patient maintains SpO2 saturation greater than 95% on room air. ll3 06:09 No provider procedures requiring assistance completed. IV discontinued, intact, ll3 bleeding controlled, No redness/swelling at site. Pressure dressing applied. Administered Medications: 05:09 Drug: Diazepam PO 10 mg Route: PO; ll3 05:09 Drug: Alum-Mag Hydroxide-Simeth PO Suspension (200 mg-200 mg-20 mg/5 mL) 30 ml Route: ll3 PO; Medication: 05:50 VIS not applicable for this client. ll3 Outcome: 05:51 Discharge ordered by . sp4 06:09 Discharged to home ambulatory, with significant other. ll3 06:09 Condition: stable 06:09 Discharge instructions given to patient, significant other, Instructed on discharge instructions, follow up and referral plans. medication usage, Demonstrated understanding of instructions, follow-up care, medications, Prescriptions given X 1. 06:10 Patient left the ED. ll3 Signatures: Dispatcher [employer] EDMS Seth Kelli jj6 Luis Angel Vargas RN RN ll3 Katarina Ramos RN RN pf1 Bart Walker MD MD sp4 Corrections: (The following items were deleted from the chart) 06:04 06:02 No provider procedures requiring assistance completed. pf1 pf1 06:04 06:02 Patient did not have IV access during this emergency room visit. pf1 pf1 06:04 06:02 BP 152 / 85; Pulse 62bpm; Resp 18bpm; Pulse Ox 100% RA; Temp 98F; Pain 4/10, pf1 Adult; pf1 06: 06:01 [facility], ambulance ETA [phone] [id number] 06: 06:01 Condition: improved pf1 pf1 06:04 06:01 Discharge instructions given to patient, Instructed on discharge instructions, pf1 follow up and referral plans. Demonstrated understanding of instructions, follow-up care, pf1
--- NOTE | 2022-08-11 05:52 | EDPHYS ---
Physician Documentation [facility] [place] Name: Eligio Hall Jr Age: 21 yrs Sex: Male : 2000 Arrival Date: 08/11/2022 Time: 04:28 Bed 5 Private MD: ED Physician Bart Walker HPI: 08/11 04:35 This 21 yrs old Male presents to ER via Unassigned with complaints of Chest sp4 Pain. 04:42 Patient presents with acute onset of midsternal chest pain starting at midnight last sp4 evening, patient reported some palpitations, reports being stressed out . Historical: - Allergies: 05:02 No Known Allergies; pf1 - PMHx: 05:02 tachycardia; acid reflux; pf1 - PSHx: 04:43 Appendectomy; sp4 - Immunization history:: Adult Immunizations up to date, Client reports receiving the 1st dose of the Covid vaccine, Last tetanus immunization: < 5 years ago Flu vaccine is up to date. - Social history:: Patient/guardian denies using alcohol, street drugs, IV drugs, caffeine, over the counter diet medications, tobacco products, Smoking status: Reported history of juuling and/or vaping. Patient uses alcohol, occasionally. Patient/guardian denies using street drugs. - Family history:: not pertinent. ROS: 04:44 Constitutional: Negative for fever, chills, and weight loss, Eyes: Negative for injury, sp4 pain, redness, and discharge, ENT: Negative for injury, pain, and discharge, Neck: Negative for injury, pain, and swelling, Cardiovascular: Positive for chest pain, palpitations, and anxiety, negative for shortness of breath Respiratory: Negative for shortness of breath, cough, wheezing, and pleuritic chest pain, Abdomen/GI: Negative for abdominal pain, nausea, vomiting, diarrhea, and constipation, Back: Negative for injury and pain, : Negative for injury, bleeding, discharge, and swelling, MS/Extremity: Negative for injury and deformity, Skin: Negative for injury, rash, and discoloration, Neuro: Negative for headache, weakness, numbness, tingling, and seizure, Psych: Negative for depression, anxiety, Allergy/Immunology: Negative for hives, rash, and allergies Endocrine: Negative for neck swelling, polydipsia, polyuria, polyphagia, and weight changes Hematologic/Lymphatic: Negative for swollen nodes, abnormal bleeding, and unusual bruising Exam: 04:44 Constitutional: This is a well developed, well nourished patient who is awake, alert, sp4 and in no acute distress. Head/Face: Normocephalic, atraumatic. Eyes: Pupils equal round and reactive to light, extra-ocular motions intact. Lids and lashes normal. Conjunctiva and sclera are not injected. Cornea within normal limits. Periorbital areas with no swelling, redness, or edema. ENT: Nares patent. No nasal discharge, no septal abnormalities noted. Tympanic membranes are normal and external auditory canals are clear. Oropharynx with no redness, swelling, or masses, exudates, or evidence of obstruction, uvula midline. Mucous membranes moist. Neck: Trachea midline, no thyromegaly or masses palpated, and no cervical lymphadenopathy. Supple, full range of motion without nuchal rigidity, or vertebral point tenderness. No Meningismus. Chest/axilla: Normal chest wall appearance and motion. Nontender with no deformity. No lesions are appreciated. Cardiovascular: Regular rate and rhythm with a normal S1 and S2. No gallops, murmurs, or rubs. Normal PMI, no JVD. No pulse deficits. Respiratory: Lungs have equal breath sounds bilaterally, clear to auscultation and percussion. No rales, rhonchi or wheezes noted. No increased work of breathing, no retractions or nasal flaring. Abdomen/GI: Soft, non-tender, with normal bowel sounds. No distension or tympany. No guarding or rebound. No evidence of tenderness throughout. Back: No spinal tenderness. No costovertebral tenderness. Skin: Warm, dry with normal turgor. Normal color with no rashes, no lesions, and no evidence of cellulitis. MS/ Extremity: Pulses equal, no cyanosis. Neurovascular intact. Full, normal range of motion. Neuro: Awake and alert, GCS 15, oriented to person, place, time, and situation. Cranial nerves II-XII grossly intact. Motor strength 5/5 in all extremities. Sensory grossly intact. Psych: Awake, alert, with orientation to person, place and time. Anxious appearing 04:44 ECG was reviewed by the Attending Physician. EKG time 4:35 AM, normal sinus rhythm with sp4 sinus arrhythmia at the rate of 77, no ST elevation or depression, no ectopy, normal intervals, normal axis, normal EKG Vital Signs: 04:43 BP 140 / 92; Pulse 76; Resp 18; Pulse Ox 100% on R/A; Weight 65.77 kg; Height 5 ft. 3 pf1 in. ; Pain 10/10; 05:47 BP 134 / 81; Pulse 86; Resp 18; Pulse Ox 99% on R/A; ll3 04:43 Body Mass Index 25.69 (65.77 kg, 160.02 cm) pf1 04:43 Pain Scale: Adult pf1 MDM: 04:42 Patient medically screened. sp4 05:48 Differential diagnosis: acute pericarditis, anxiety, gastroesophageal reflux disease sp4 (GERD), hiatal hernia, peptic ulcer disease, pericarditis, pleurisy, pneumonia. HEART Score: History: Slightly Suspicious (0), ECG: Normal (0), Age: < or = 45 years (0), Risk Factors: No Risk Factors Known (0), Troponin: < or = 1 x Normal Limit (0), Total Score = 0. Data reviewed: vital signs, nurses notes, old medical records, lab test result(s), cardiac enzymes, CBC, electrolytes, hepatic panel. 05:49 ED course: Work-up unremarkable today patient is stable for discharge home. Will advise sp4 omeprazole daily for heartburn and Benadryl at home as needed for anxiety. . 08/11 04:42 Order name: Basic Metabolic Panel; Complete Time: 05:46 [facility] 08/11 04:42 Order name: CBC with Diff; Complete Time: 05:46 [facility] 08/11 04:42 Order name: LFT's; Complete Time: 05:46 [facility] 08/11 04:42 Order name: Troponin HS; Complete Time: 05:46 [facility] 08/11 04:44 Order name: Urine Drug Screen [facility] 08/11 04:36 Order name: XRAY Chest (1 view) [facility] 08/11 04:36 Order name: EKG; Complete Time: 04:37 [facility] 08/11 04:36 Order name: EKG - Nurse/Tech; Complete Time: 04:56 [facility] 08/11 04:36 Order name: IV Saline Lock; Complete Time: 04:56 sp4 08/11 04:36 Order name: O2 Per Protocol; Complete Time: 04:56 sp4 08/11 04:36 Order name: O2 Sat Monitoring; Complete Time: 04:56 sp4 EC:44 Rate is 72 beats/min. Rhythm is regular, Normal Sinus Rhythm. QRS [place] is Normal. [place] sp4 interval is normal. QRS interval is normal. QT interval is normal. T waves are Normal. No ST changes noted. Clinical impression: Normal ECG. Interpreted by me. Administered Medications: 05:09 Drug: Diazepam PO 10 mg Route: PO; ll3 05:09 Drug: Alum-Mag Hydroxide-Simeth PO Suspension (200 mg-200 mg-20 mg/5 mL) 30 ml Route: ll3 PO; Disposition: 05:49 Critical Care: not applicable. sp4 Disposition Summary: 08/11/22 05:51 Discharge Ordered Location: Home sp4 Problem: new sp4 Symptoms: have improved sp4 Condition: Stable sp4 Diagnosis - Anxiety disorder, unspecified sp4 - Gastroesophageal reflux. sp4 - Noncardiac chest pain sp4 Followup: sp4 - With: Aris Watson MD - When: 7 - 10 days - Reason: Recheck today's complaints Discharge Instructions: - Discharge Summary Sheet sp4 - Gastroesophageal Reflux Disease, Adult, Bxmg-kg-Clmi sp4 Forms: - Work release form 3 Prescriptions: - omeprazole 20 mg Oral capsule,delayed release (e.c.) - take 2 capsule by ORAL route daily; 60 capsule; Refills: 0, Product Selection sp4 Permitted Signatures: Dispatcher [employer] Luis Angel Feliz RN RN ll3 Katarina Ramos RN RN pf1 Bart Walker MD MD sp4
[2022-08-11 06:04] LABS: Barbiturates NEGATIVE (NEGATIVE); Benzodiazepines NEGATIVE (NEGATIVE); Cocaine NEGATIVE (NEGATIVE); METHAMPHETAM NEGATIVE (NEGATIVE); Methadone NEGATIVE (NEGATIVE); Opiates NEGATIVE (NEGATIVE); Phencyclidine NEGATIVE (NEGATIVE); THC Cannibis NEGATIVE (NEGATIVE)
[2022-08-11 06:37] VITALS: BP 134/81; O2SAT 99
--- NOTE | 2022-08-11 09:51 | RAD REPORT ---
EXAM DESCRIPTION: XR Chest, 1 View CLINICAL HISTORY: The patient is 21 years old and is Male; CHEST PAIN TECHNIQUE: Frontal view of the chest. COMPARISON: No relevant prior studies available. FINDINGS: Lungs: Unremarkable. No consolidation. Pleural space: Unremarkable. No pneumothorax. Heart: Unremarkable. Mediastinum: Unremarkable. Bones/joints: Unremarkable. IMPRESSION: No acute findings in the chest. Electronically signed by: Kade Logan MD 08/11/2022 5:06 AM CDT Due to temporary technical issues with the PACS/Fluency reporting system, reports are being signed by the in house radiologist without review as a courtesy to ensure prompt reporting. The interpreting r adiologist is fully responsible for the content of the report.
--- NOTE | 2022-08-12 05:39 | EKG ---
Test Date: 2022-08-11 Test Time: 04:35:48 [employer] Salesperson: [place] MEASUREMENT RESULTS: Intervals: Rate: 77 GA: 142 QRSD: 104 QT: 362 QTc: 409 [place]: P: 38 GA: 142 QRS: 70 T: 23 INTERPRETIVE STATEMENTS: Normal sinus rhythm with sinus arrhythmia Normal ECG Compared to ECG 01/03/2022 23:19:13 Incomplete right bundle-branch block no longer present Electronically Signed On 08-12-22 05:37:40 CDT by Aris Watson
== END 2022-08-11 06:10 | disposition home or self-care (01) ==
LOC: ER 04:28
DX: F41.9 Anxiety disorder, unspecified (principal); K21.9 Gastro-esophageal reflux disease without esophagitis
CPT/HCPCS: 36415; 71045; 80048; 80076; 80307; 84484; 85025; 93005

== ENCOUNTER 2023-01-17 19:36 | Emergency (ER) | payer SELFPAY ==
--- OUTSIDE RECORDS SUMMARY | 2023-01-17 19:39 | XMS REPORT | Continuity of Care Document ---
:2000 Author Organization [facility] t Address [address] [place] [address] [address] [place] [address] Care Team Providers Name Role Phone Su Hood Primary Care Physician [phone] MONY MURILLO Attending Clinician Unavailable Mony Murillo MD Attending Clinician Doctor Unassigned, [place] Attending Clinician Unavailable TOM MI Attending Clinician Unavailable Isaiah Hancock MD Attending Clinician Tom Mi MD Attending Clinician Pob, [facility] Attending Clinician Unavailable Kimi Jeronimo RN Attending Clinician Unavailable BRYANT GARBER Attending Clinician Unavailable Bryant Luque Attending Clinician DALILA CALI Attending Clinician Unavailable Dalila Cali MD Attending Clinician [facility] Attending Clinician Unavailable Pam Hogan MD Attending Clinician DALILA CALI Admitting Clinician Unavailable BRYANT GARBER Admitting Clinician Unavailable Payers Payer Name Policy Type Policy Number Effective Date Expiration Date Van arrington [facility] [id number] 2012 CHOICE [place] STAR 00:00:00 Problems Condition Condition Condition Status Onset Resolution Last Treating Co mments Source Name Details Category Date Date Treatment Clinician Date H. pylori H. pylori Disease Active 2012-03 Uni vers infection infection 1-15 ity of 00:00: [address] Allergies, Adverse Reactions, Alerts Allergy Allergy Status Severity Reaction(s) Onset Inactive Treating Comm ents Source Name Type Date Date Clinician NO KNOWN Drug Active Univers ALLERGIE Class ity of S [facility] Social History Social Habit Start Date Stop Date Quantity Comments Source Alcohol intake 2022-09-19 2022-09-19 Current University of 00:00:00 00:00:00 non-drinker of [facility] alcohol (finding) Branch Exposure to 2022-08-07 2022-08-17 Not sure [facility] SARS-CoV-2 00:00:00 16:27:00 [facility] (event) [place] Tobacco use and 2012-12-01 2012-12-01 Smokeless tobacco Un iversity of exposure 00:00:00 00:00:00 non-user [facility] Tobacco Comment 2012-12-01 2012-12-01 father smokes Univer sity of 00:00:00 00:00:00 outside [facility] Sex Assigned At [birth year] Universit y of 00:00:00 00:00:00 [facility] Smoking Status Start Date Stop Date Source Never smoked tobacco [facility] Medications Ordered Filled Start Stop Current Ordering Indication Dosage Frequency Signature Comments Components Source Medication Medication Date Date Medication? Clinician (SIG) Name Name amoxicillin 2022- No 1{tbl} 1 tablet, Univers -clavulanat 09-20 Oral, ONCE i ty of e 05:00: 04:17 NOW, 1 [place] (AUGMENTIN) 00 :00 dose, On Medi petrona 875-125 mg [facility] per tablet 09/20/22 at 1 tablet 0000, Routine
Reason for Anti-Infec tive: Empiric Non-Surgic al Prophylaxi s
Durat ion of therapy: 5 days HYDROcodone 2022- No 1{tbl} 1 tablet, Univers -acetaminop 09-20 Oral, ity of hen (NORCO 04:15: 04:17 ONCE, 1 [place] 5) 5-325 mg 00 :00 dose, On Medi [place]rona tablet 1 Sun Branch tablet 09/19/22 at 2315, MECHELLE traMADoL 50 2022-2022- No [id number] 50mg Take 1 Uni vers mg tablet 09-19 tablet by ity of 00:00: 04:59 mouth [place] 00 :00 every 8 Medical (eight) Branch hours as needed for Pain (scale 4-6) for up to 15 days. Indication s: acute pain amoxicillin 2022- No [id number] 1{tbl} Take 1 Univers -clavulanat 09-19 tablet by it y of e 875-125 00:00: 04:59 mouth [place] mg per 00 :00 every 12 Medical tablet (twelve) Branch hours for 7 days. acetaminoph 2022- No 1000mg 1,000 mg, Univers en 06-29 Oral, ity of (TYLENOL) 23:45: 23:41 ONCE, 1 [place] tablet 00 :[place] dose, On Medical 1,000 mg 06/29/22 Branc h at 1845, Routine ibuprofen 2022- No 600mg 600 mg, Uni vers (IBU) 06-29 Oral, ity of tablet 600 23:45: 23:42 ONCE, 1 [place] mg 00 :00 dose, On Medical 06/29/22 Branch at 1845, MECHELLE ibuprofen 2022-0 Yes [id number] 800mg Take 1 U nivers 800 mg 4-04 tablet by ity of tablet 00:00: mouth [place] 00 every 8 Medical (eight) Branch hours as needed for Temp > 38.5 C or Pain (scale 4-6). ondansetron 0 Yes [id number] 4mg Take 1 Univers 4 mg 4-04 tablet by ity of disintegrat 00:00: mouth [place] ing tablet 00 every 8 Medica l (eight) Branch hours as needed for Nausea and Vomiting (N/V). ibuprofen 2022-0 Yes [id number] 800mg Take 1 U nivers 800 mg 4-04 tablet by ity of tablet 00:00: mouth [place] 00 every 8 Medical (eight) Branch hours as needed for Temp > 38.5 C or Pain (scale 4-6). ondansetron 2023-0 Yes [id number] 4mg Take 1 Univers 4 mg 4-04 tablet by ity of disintegrat 00:00: mouth [place] ing tablet 00 every 8 Medica l (eight) Branch hours as needed for Nausea and Vomiting (N/V). ibuprofen 3-0 Yes [id number] 800mg Take 1 U nivers 800 mg 4-04 tablet by ity of tablet 00:00: mouth [place] 00 every 8 Medical (eight) Branch hours as needed for Temp > 38.5 C or Pain (scale 4-6). ondansetron 3-0 Yes [id number] 4mg Take 1 Univers 4 mg 4-04 tablet by ity of disintegrat 00:00: mouth [place] ing tablet 00 every 8 Medica l (eight) Branch hours as needed for Nausea and Vomiting (N/V). ibuprofen 3-0 Yes [id number] 800mg Take 1 U nivers 800 mg 4-04 tablet by ity of tablet 00:00: mouth [place] 00 every 8 Medical (eight) Branch hours as needed for Temp > 38.5 C or Pain (scale 4-6). ondansetron 3-0 Yes [id number] 4mg Take 1 Univers 4 mg 4-04 tablet by ity of disintegrat 00:00: mouth [place] ing tablet 00 every 8 Medica l (eight) Branch hours as needed for Nausea and Vomiting (N/V). ibuprofen 3-0 Yes [id number] 800mg Take 1 U nivers 800 mg 4-04 tablet by ity of tablet 00:00: mouth [place] 00 every 8 Medical (eight) Branch hours as needed for Temp > 38.5 C or Pain (scale 4-6). ondansetron 2023-0 Yes [id number] 4mg Take 1 Univers 4 mg 4-04 tablet by ity of disintegrat 00:00: mouth [place] ing tablet 00 every 8 Medica l (eight) Branch hours as needed for Nausea and Vomiting (N/V). ibuprofen 2023-0 Yes [id number] 800mg Take 1 U nivers 800 mg 4-04 tablet by ity of tablet 00:00: mouth [place] 00 every 8 Medical (eight) Branch hours as needed for Temp > 38.5 C or Pain (scale 4-6). ondansetron 2023-0 Yes [id number] 4mg Take 1 Univers 4 mg 4-04 tablet by ity of disintegrat 00:00: mouth [place] ing tablet 00 every 8 Medica l (eight) Branch hours as needed for Nausea and Vomiting (N/V). ibuprofen 3-0 Yes [id number] 800mg Take 1 U nivers 800 mg 4-04 tablet by ity of tablet 00:00: mouth [place] 00 every 8 Medical (eight) Branch hours as needed for Temp > 38.5 C or Pain (scale 4-6). ondansetron 3-0 Yes [id number] 4mg Take 1 Univers 4 mg 4-04 tablet by ity of disintegrat 00:00: mouth [place] ing tablet 00 every 8 Medica l (eight) Branch hours as needed for Nausea and Vomiting (N/V). ibuprofen 3-0 Yes [id number] 800mg Take 1 U nivers 800 mg 4-04 tablet by ity of tablet 00:00: mouth [place] 00 every 8 Medical (eight) Branch hours as needed for Temp > 38.5 C or Pain (scale 4-6). ondansetron 3-0 Yes [id number] 4mg Take 1 Univers 4 mg 4-04 tablet by ity of disintegrat 00:00: mouth [place] ing tablet 00 every 8 Medica l (eight) Branch hours as needed for Nausea and Vomiting (N/V). ibuprofen 3-0 Yes [id number] 800mg Take 1 U nivers 800 mg 4-04 tablet by ity of tablet 00:00: mouth [place] 00 every 8 Medical (eight) Branch hours as needed for Temp > 38.5 C or Pain (scale 4-6). ondansetron 3-0 Yes [id number] 4mg Take 1 Univers 4 mg 4-04 tablet by ity of disintegrat 00:00: mouth [place] ing tablet 00 every 8 Medica l (eight) Branch hours as needed for Nausea and Vomiting (N/V). ibuprofen 2023-0 Yes [id number] 800mg Take 1 U nivers 800 mg 4-04 tablet by ity of tablet 00:00: mouth [place] 00 every 8 Medical (eight) Branch hours as needed for Temp > 38.5 C or Pain (scale 4-6). ondansetron 2023-0 Yes [id number] 4mg Take 1 Univers 4 mg 4-04 tablet by ity of disintegrat 00:00: mouth [place] ing tablet 00 every 8 Medica l (eight) Branch hours as needed for Nausea and Vomiting (N/V). ibuprofen Yes [id number] 800mg Take 1 U nivers 800 mg 4-04 tablet by ity of tablet 00:00: mouth [place] 00 every 8 Medical (eight) Branch hours as needed for Temp > 38.5 C or Pain (scale 4-6). ondansetron Yes [id number] 4mg Take 1 Univers 4 mg 4-04 [...] On Branch 05/01/22 at 0000, MECHELLE ketorolac No 30mg 30 mg, Unive rs (TORADOL) 05-01 Slow IV ity of injection 05:45: 05:10 Push, [place] 30 mg 00 :00 ONCE, 1 Medical dose, On Branch 04/30/22 at 2345, Routine azithromyci No 1000mg 1,000 mg, Univers n 05-01 Oral, ity of (ZITHROMAX) 05:15: 05:09 ONCE, 1 [place] tablet 00 :00 dose, On Medical 1,000 mg Tue04/30/22 Branc h at 2315, MECHELLE
Re ason for Anti-Infec tive: Documented Infection< br>Documen mikey Infection Site: Urine
D uration of Therapy: Other (see Comments) ondansetron 2022- No 4mg 4 mg, Slow Univers (ZOFRAN 05-01 IV Push, ity of (PF)) 04:30: 03:39 ONCE, 1 [place] injection 4 00 :00 dose, On Medi petrona mg Tue04/30/22 Branch at 2230, MECHELLE morpHINE (4 2022- No 4mg 4 mg, Slow Univers mg/mL) 05-01- IV Push, ity of injection 4 04:30: 03:39 ONCE, 1 [place] mg 00 :00 dose, On Medical 04/30/22 Branch at 2230, STAT cefTRIAXone 2022- No 1000mg 1,000 mg, Univers (ROCEPHIN) 05-01- IV ity of 1,000 mg in 03:30: 04:53 Piggyback, [place] NaCl 0.9% 00 :00 ONCE, 1 Medical (NS) 50 mL dose, On [facility] h MINI-BAG 04/30/22 at 2130, Administer over 30 Minutes, 50 mL
R jaswinder for Anti-Infec tive: Documented Infection< br>Documen mikey Infection Site: Pelvic<br& gt;Duratio n of Therapy: 7 days doxycycline Yes [id number] 100mg Take 1 Univers hyclate 100 -03 capsule by it y of mg capsule 00:00: mouth 2 [place] 00 (two) Medical times Branch daily. doxycycline 2022- No [id number] 100mg Take 1 Univers hyclate 100 -05 29-04 capsule by i ty of mg capsule 00:00: 00:00 mouth 2 [place] 00 :00 (two) Medical times Branch daily. acetaminoph 2022- No [id number] 1{tbl} Take 1 U nivers en-codeine 2- 02-11 tablet by ity of 300-30 mg 00:00: 05:59 mouth [place] tablet 00 :00 every 4 Medical (four) Branch hours as needed for Pain (scale 1-3) for up to 7 days. Indication s: acute pain ibuprofen Yes [id number] 600mg Take 1 Univers 600 mg 2-01 tablet by ity of tablet 00:00: mouth [place] 00 every 6 Medical (six) Branch hours as needed for Pain (scale 4-6). ibuprofen Yes [id number] 600mg Take 1 Univers 600 mg 2-01 tablet by ity of tablet 00:00: mouth [place] 00 every 6 Medical (six) Branch hours as needed for Pain (scale 4-6). ibuprofen 2022- No [id number] 600mg Take 1 Univers 600 mg 2 04-04 tablet by ity of tablet 00:00: 00:00 mouth [place] 00 :00 every 6 Medical (six) Branch hours as needed for Pain (scale 4-6). &lt 2021-0 No 8-11 00:00: 00 TAKE ONE 2021-0 No 600 TABLET FOUR 8-11 TIMES DAILY 00:00: 00 &lt 2021-0 No 800 8-11 00:00: 00 TAKE 1 2021-0 No 800 TABLET BY 8-11 MOUTH THREE 00:00: TIMES DAILY 00 Dose 2021-0 No Unknown 2-28 00:00: 00 Dose 2020- No Unknown 2-08 00:00: 00 ibuprofen 2020-03 No 1mg 800 mg 0-12 tablet 00:00: 00 amoxicillin 0 No 1mg 875 mg 6-03 tablet 00:00: 00 pyrantel 0 No 15mg/mL pamoate 50 4-28 mg/mL oral 00:00: suspension 00 Miralax 17 No 1gram gram oral 4-28 powder 00:00: packet 00 amoxicillin No 1mg 500 mg 9-21 capsule 00:00: 00 amoxicillin 0 No 1mg 500 mg 8-22 capsule 00:00: 00 permethrin No 1% 5 % topical 5-26 cream 00:00: 00 griseofulvi No 15mg/5 n microsize 5-24 mL 125 mg/5 mL 00:00: oral 00 suspension sulfamethox 0 No 15mg/5 azole 200 5-24 mL mg-trimetho 00:00: prim 40 00 mg/5 mL oral suspension Adderall XR No 1mg 20 mg 5-02 capsule,ext 00:00: ended 00 release amphetamine Yes 10mg Take 1 Cap Univers -dextroamph 2-28 by mouth ity of etamine XR 00:00: every (ADDERALL morning. Medica l XR) 10 mg Branch 24 hr capsule amphetamine Yes 10mg Take 1 Cap Univers -dextroamph 2-28 by mouth ity of etamine XR 00:00: every (ADDERALL 00 morning. Medica l XR) 10 mg Branch 24 hr capsule amphetamine 2022- No 10mg Take 1 Cap Univers -dextroamph 05-25 04-04 by mouth ity of etamine XR 00:00: 00:00 every [place] (ADDERALL 00 :00 morning. Medica l XR) 10 mg Branch 24 hr capsule Cholecalcif 2012-03 Yes [id number] 1/2 tab po Univers ovidio, 0-30 q day x 6 ity of Vitamin D3, 00:00: Marleni mcmillan (VITAMIN 00 then 1 tab Medic al D3) 2,000 po q day x Bran ch unit Tab 6 weeks Cholecalcif 2012-03 Yes [id number] 1/2 tab po Univers ovidio, 0-30 q day x 6 ity of Vitamin D3, 00:00: Marleni mcmillan s (VITAMIN 00 then 1 tab Medic al D3) 2,000 po q day x Bran ch unit Tab 6 weeks Cholecalcif 2012-03- No [id number] 1/2 tab po Univers ovidio, 0-30 04-04 q day x 6 ity of Vitamin D3, 00:00: 00:00 Quan mcmillan as (VITAMIN 00 :00 then 1 tab Medic al D3) 2,000 po q day x Bran ch unit Tab 6 weeks amoxicillin 2012-03 Yes [id number] One po bid Univers (AMOXIL) 0-29 x 14 days ity of 875 mg 00:00: [place] tablet 00 Medical Branch lansoprazol 2012-03 Yes [id number] One po bid Univers e 0-29 x 14 days ity of (PREVACID) 00:00: [place] 30 mg 00 Medical capsule Branch clarithromy 2012-03 Yes [id number] 1.5 tablet Univers nic 0-29 (375 mg) ity of (BIAXIN) 00:00: po bid x [place] 250 mg 00 14 days Medical tablet Branch amoxicillin 2012-03 Yes [id number] One po bid Univers (AMOXIL) 0-29 x 14 days ity of 875 mg 00:00: [place] tablet 00 Medical Branch lansoprazol 2012-03 Yes [id number] One po bid Univers e 0-29 x 14 days ity of (PREVACID) 00:00: [place] 30 mg 00 Medical capsule Branch clarithromy 2012-03 Yes [id number] 1.5 tablet Univers nic 0-29 (375 mg) ity of (BIAXIN) 00:00: po bid x [place] 250 mg 00 14 days Medical tablet Branch amoxicillin 2012-03- No [id number] One po bid Univers (AMOXIL) 04-04 x 14 days ity o f 875 mg 00:00: 00:00 [place] tablet 00 :00 Medical Branch lansoprazol 2012-03- No [id number] One po bid Univers e -04 x 14 days ity of (PREVACID) 00:00: 00:00 [place] 30 mg 00 :00 Medical capsule Branch clarithromy 2012-03- No [id number] 1.5 tablet Univers nic -04 (375 mg) ity of (BIAXIN) 00:00: 00:00 po bid x [place] 250 mg 00 :00 14 days Medical tablet Branch Melatonin 3 2012-03 Yes [id number] Take by Univers mg Lozg 0-25 mouth. ity of 00:00: [place] 00 Medical Branch Melatonin 3 2012-03 Yes [id number] Take by Univers mg Lozg 0-25 mouth. ity of 00:00: [place] 00 Medical Branch Melatonin 3 2012-03- No [id number] Take by Univers mg Lozg 0-25 04-04 mouth. ity of 00:00: 00:00 [place] 00 :00 Medical Branch Vital Signs Vital Name Observation Time Observation Value Comments Source Systolic blood 2022-09-20 04:02:00 121 mm[Hg] Univer sity [facility] [facility] Diastolic blood 2022-09-20 04:02:00 88 mm[Hg] [facility] [place] [facility] 2022-09-20 04:02:00 91 /min [facility] Body temperature 2022-09-20 04:02:00 36.72 Richelle [facility] Respiratory rate 2022-09-20 04:02:00 16 /min [facility] Body height 2022-09-20 04:02:00 162.6 cm [facility] Body weight 2022-09-20 04:02:00 73.573 kg [facility] BMI 2022-09-20 04:02:00 27.84 kg/m2 [facility] Oxygen saturation in 2022-09-20 04:02:00 99 /min University of Arterial blood by [facility] Pulse oximetry Branch Systolic blood 2022-06-30 00:53:04 117 mm[Hg] Univer sity of pressure [place] [facility] Diastolic blood 2022-06-30 00:53:04 66 mm[Hg] Unive rsity of pressure [place] [facility] Heart rate 2022-06-30 00:53:04 88 /min Universi ty of [place] [facility] Body temperature 2022-06-30 00:53:04 36.89 Richelle Univ ersity of [place] [facility] Respiratory rate 2022-06-30 00:53:04 16 /min Univ ersity [facility] [place] [facility] Oxygen saturation in 2022-06-30 00:53:04 97 /min University of Arterial blood by [facility] Pulse oximetry Branch Body height 2022-06-29 23:34:00 162.6 cm Universi ty of [place] [facility] Body weight 2022-06-29 23:34:00 63.504 kg Universi ty of [place] [facility] BMI 2022-06-29 23:34:00 24.03 kg/m2 Universi ty of [place] [facility] Systolic blood 2022-05-01 05:10:00 144 mm[Hg] Univer sity of pressure [place] [facility] Diastolic blood 2022-05-01 05:10:00 92 mm[Hg] Unive rsity of pressure [place] [facility] Heart rate 2022-05-01 05:10:00 86 /min Universi ty of [place] [facility] Respiratory rate 2022-05-01 05:10:00 16 /min Univ ersity [facility] [place] [facility] Oxygen saturation in 2022-05-01 05:10:00 100 /min University of Arterial blood by [facility] Pulse oximetry Branch Body temperature 2022-05-01 03:18:00 36.72 Richelle Univ ers[facility] [place] [facility] Body height 2022-05-01 03:18:00 162.6 cm Universi ty of [place] [facility] Body weight 2022-05-01 03:18:00 65.772 kg [facility]i ty [facility] [place] [facility] BMI 2022-05-01 03:18:00 24.89 kg/m2 Universi ty [facility] [place] [facility] Systolic blood 2022-04-29 03:00:00 126 mm[Hg] Univer sity of pressure [place] [facility] Diastolic blood 2022-04-29 03:00:00 79 mm[Hg] Unive rsity of pressure [facility] Heart rate 2022-04-29 03:00:00 88 /min [facility] Body temperature 2022-04-29 03:00:00 36.78 [place] [facility] rate 2022-04-29 03:00:00 18 /min [facility] Oxygen saturation in 2022-04-29 03:00:00 100 /min [facility] Arterial blood by [facility] Pulse oximetry [place] Body height 2022-04-29 00:57:00 162.6 cm [facility] Body weight 2022-04-29 00:57:00 65.772 kg [facility] BMI 2022-04-29 00:57:00 24.89 kg/m2 [facility] BP Systolic 2021-11-05 15:35:00 127 mm[Hg] BP [...] Procedure Date / Time Performed Performing Clinician [facility] e NOTICE OF PRIVACY 2022-09-20 03:41:58 Doctor Unassigned, No Univ [facility]ity of [place] PRACTICES Name Medical Branch CONSENT/REFUSAL FOR 2022-09-20 03:40:51 Doctor Unassigned, No Un [facility] [place] DIAGNOSIS AND Name Medical Branch TREATMENT EXTERNAL PROVIDER 2022-08-30 05:01:00 Doctor Unassigned, No Univ [facility] [place] RECORDS Name Medical Branch ASSIGNMENT OF BENEFITS 2022-08-17 21:27:52 Doctor Unassigned, No [facility] RAPID STREP SCREEN FOR 2022-06-29 23:44:00 Bryant Garber [facility] GROUP A Medical Branch RAPID INFLUENZA A/B 2022-06-29 23:44:00 Bryant Garber [facility] CONSENT/REFUSAL FOR 2022-06-29 23:28:51 Doctor Unassigned, No Un [facility] [place] DIAGNOSIS AND Name Medical Branch TREATMENT US SCROTUM AND 2022-05-01 04:54:42 Dalila Cali [facility] Branch CONSENT/REFUSAL FOR 2022-05-01 03:15:19 Doctor Unassigned, No [facility] [place] DIAGNOSIS AND Name Medical Branch TREATMENT US TESTICULAR TORSION 2022-04-29 02:22:24 Bryant Garber [facility] URINALYSIS 2022-04-29 01:10:00 Bryant Garber [facility] NOTICE OF PRIVACY 2022-04-29 00:45:07 Doctor Unassigned, No [facility] Name Medical Branch CONSENT/REFUSAL FOR 2022-04-29 00:43:35 Doctor Unassigned, No Un [facility] [place] DIAGNOSIS AND [facility] Medical Branch TREATMENT Plan of Care Planned Activity Planned Date Details Comments Source Goal Plan of Care Note [code = 56889-3] Goal Plan of Care Note [code = 92848-4] Goal Plan of Care Note [code = 33938-5] Goal Plan of Care Note [code = 73761-7] Goal Plan of Care Note [code = 58437-6] Goal Plan of Care Note [code = 41259-1] Goal Plan of Care Note [code = 24153-2] Goal Plan of Care Note [code = 61435-0] Goal Plan of Care Note [code = 75011-3] Goal Plan of Care Note [code = 78562-5] Goal Plan of Care Note [code = 49363-6] Goal Plan of Care Note [code = 65461-8] Goal Plan of Care Note [code = 31904-9] Goal Plan of Care Note [code = 79166-5] Goal Plan of Care Note [code = 41963-8] Goal Plan of Care Note [code = 42197-6] Goal Plan of Care Note [code = 40720-2] Goal Plan of Care Note [code = 95513-7] Goal Plan of Care Note [code = 13671-9] Encounters Start End Encounter Admission Attending Care Care Encounter Source Date/Time Date/Time Type Type Clinicians Facility Department ID 2022-09-19 2022-09-19 [facility] [id number] Univers 23:04:00 23:34:00 MONY ity [facility] 2022-09-19 2022-09-19 Emergency [facility] 1.2.840.114 [id number] Univers 23:04:00 23:34:00 Mony JUNG 350.1.13.10 ity of [place] [facility] [id number] [facility] 084 [place] 2022-09-19 2022-09-19 Orders Doctor COTNI 1.2.840.114 [id number] Univers 00:00:00 00:00:00 Only Unassigned, ROSALINA 350.1.13.10 ity of [place] [facility] 4.2.7.2.[id number] [facility] 009 [place] 2022-09-15 2022-09-15 [facility] [id number] Univers 13:15:00 13:15:00 TOM ity [facility] 2022-08-30 2022-08-30 Orders Doctor CONTI 1.2.840.114 [id number] Univers 00:00:00 00:00:00 Only Unassigned, ROSALINA 350.1.13.10 ity of [place] [facility] 4.2.7.2.[id number] [facility] 009 [place] 2022-08-30 2022-08-30 [facility] 1.2.840.114 [id number] Univers 00:00:00 00:00:00 Isaiah JUNG 350.1.13.10 ity [place] [id number] [address] 2022-08-18 2022-08-18 Telephone Hiwot [facility] 1.2.840.114 [id number] Univers 00:00:00 00:00:00 Tom JUNG 350.1.13.10 i ty [place] PROFESSIO [id number] Oh dical NAL 098 [facility] 2022-08-17 2022-08-17 Extrusion Line Operator Bl[place], Adc Lab Main [facility] 1.2.8 40.114 [id number] Univers 17:00:00 17:15:00 Visit Tom Mi 350.1.13.10 ity [place] PROFESS[place] [id number] Oh dical NAL 353 [facility] 2022-08-17 2022-08-17 Outpatient R HIWOT [facility] [id number] Univers 16:30:00 16:56:09 [facility] 2022-08-17 2022-08-17 Orders Doctor SUSHILA 1.2.840.114 [id number] Univers 00:00:00 00:00:00 Only Unassigned, ROSALINA 350.1.13.10 ity of [place] [id number] [facility] 009 [place] 2022-06-30 2022-06-30 Letter SUSHILA Jeronimo 1.2.840.114 [id number] Univers 00:00:00 00:00:00 (Out) Kimi ROMANO 350.1.13.10 it y of [facility] 4.2.7.2.[id number] [facility] 019 [place] 2022-06-29 2022-06-29 Emergency X [facility] ERT [id number] Univers 18:38:00 19:58:00 BRYANT itpaulino [facility] 2022-06-29 2022-06-29 [facility] 1.2.840.114 [id number] Univers 18:38:00 19:58:00 Bryant FABIANA 350.1.13.10 i ty [place] [id number] [address] 2022-04-30 2022-04-30 Emergency X VIRAJ [facility] ERT [id number] Univers 21:29:00 23:36:00 DALILA [facility] 2022-04-30 2022-04-30 [facility] 1.2.149.206 [id number] Univers 21:29:00 23:36:00 Dalila CABRALRHEA 350.1.13.10 [facility] 4.2.7.2.686 [facility] [id number] [address] 2022-04-28 2022-04-28 Emergency X PRANAY [facility] ERT [id number] Univers 18:59:00 [facility]:12:[facility] 2022-04-28 2022-04-28 Emergency Bryant Garber [facility] 1.2.840 .114 [id number] Univers 18:59:00 21:12:00 SherrykavithaPam calvertRHEA 350.1.13.10 [facility] 4.2.7.2.686 [facility] [id number] [address] 2021-11-05 2021-11-05 Outpatient [id number] 00:00:00 00:00:00 Visit [id number] Results Test Description Test Time Test Comments Results Result Comments Source DRUG SCREEN, SERUM, NO CONFIRMATION 2021-11-12 15:53:53 Test Item Value Reference Range Interpretation Comme nts AMPHETAMINES (test code = 77510) TNP Specimen received in an unspun tube not compliant with tube manufactur er requirements. R esults cannot be reported. BARBITURATES (test code = 61455) TEST NOT PERFORMED BENZODIAZEPINES (test code = TEST NOT PERFORMED 80027) COCAINE METABOLITE (test code = TEST NOT PERFORMED 35856) METHADONE (test code = 24947) TEST NOT PERFORMED OPIATES (test code = 482028) TEST NOT PERFORMED PHENCYCLIDINE (test code = TEST NOT PERFORMED 535438) PROPOXYPHENE (test code = TEST NOT PERFORMED 375657) THC (CANNABIS) (test code = TEST NOT PERFORMED 387560) ETHANOL (test code = 803085) TEST NOT PERFORMED UNLABELLED [id number] 06:04:24 Test Item Value Reference Range Interpretation Comments NOTE: (test code = SPECIMEN RECEIVED WITHOUT 22433) PATIENT'S NAME. UNLESS OTHERWISE INDIC ATED, ALL TESTING PERFORM ED ATCLINICAL PATHOLOGY [facility] [address] [place] [address] LABORATOR Y DIRECTOR: KELSIE COX M.D. CLIA NUMBER [id number] CAP ACCREDITATION N O. [id number] SARS-COV-2 (COVID19), NAAT [ADDED]2020-04-11 00:00:00 Test Item Value Reference Range Interpretation Comments SARS-CoV-2 INTERPRETATION (test NEGATIVE code = 36747) SOURCE (test code = 68091) NOT SPECIFIED SARS-COV-2 (COVID19), NAAT [ADDED]2020-04-11 00:00:00 Test Item Value Reference Range Interpretation Comments SARS-CoV-2 INTERPRETATION (test NEGATIVE code = 08237) SOURCE (test code = 11542) NOT SPECIFIED CULTURE, [id number] 00:00:00 Test Item Value Reference Range Interpretation Comments CULTURE, THROAT (test SPECIMEN NUMBER: code = 21841) [id number] CULTURE, [id number] 00:00:00 Test Item Value Reference Range Interpretation Comments CULTURE, THROAT (test SPECIMEN NUMBER: code = 41281) [id number] LIVER (HEPATIC) FUNCTION [id number] 00:00:00 Test Item Value Reference Range Interpretation [...] = 2219) 9 U/L LIVER (HEPATIC) FUNCTION [id number] 00:00:00 Test Item Value Reference Range Interpretation Comments PROTEIN, TOTAL (test code = 2229) 8.1 G/DL ALBUMIN (test code = 220) 4.5 G/DL BILIRUBIN, TOTAL (test code = 2206) 0.4 MG/DL BILIRUBIN, DIRECT (test code = 0.1 MG/DL 2021) ALKALINE PHOSPHATASE (test code = 239 U/L 2203) SGOT (AST) (test code = 2218) 22 U/L SGPT (ALT) (test code = 221) 9 U/L
[2023-01-17] MEDS ORDERED: ONDANSETRON 4 MG (ODT) TAB ONE (20:27)
[2023-01-17] MEDS ORDERED: IBUPROFEN 400 MG TAB ONE (20:27)
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
== END 2023-01-17 22:50 | disposition home or self-care (01) ==
LOC: ER 19:36
DX: S06.0X0A Concussion without loss of consciousness, initial encounter (principal)
CPT/HCPCS: 70450; 72125; 99283; Q0162